=== PATIENT | male | born 1950 | race Caucasian/White ===

== ENCOUNTER 2017-01-22 08:04 | Outpatient (CLI) ==
[2017-01-22 15:20] LABS: BILIRUBIN,URINE Negative (NEGATIVE); KETONES,URINE Negative (NEGATIVE); LEUKOCYTE ESTERASE ,URINE Negative (NEGATIVE); NITRITE,URINE Negative (NEGATIVE); PH,URINE 6.5 (5-9); PROTEIN,URINE Negative (NEGATIVE); URINE, BLOOD Negative (NEGATIVE)
[2017-01-22 15:24] LABS: ADD URINE MICROSCOPIC NO
[2017-01-22 15:31] LABS: BASOPHILS # (AUTO) 0.1 K/uL (0-0.2); BASOPHILS % (AUTO) 0.8 % (0.0-3.0); EOSINOPHILS # (AUTO) 0.2 K/ul (0.0-0.7); EOSINOPHILS % (AUTO) 2.8 % (0.0-7.0); HEMOGLOBIN 14.9 g/dl (14.0-18.0); IMMATURE GRANULOCYTE % (AUTO) 0.4 % (0.0-5.0); LYMPHOCYTES # (AUTO) 1.6 K/uL (0.60-3.4); LYMPHOCYTES % (AUTO) 20.7 (10.0-50.0); MEAN CORPUSCULAR HEMOGLOBIN 30.2 pg (27.0-31.0); MEAN CORPUSCULAR HGB CONC 34.7 (31.8-35.4); MONOCYTES # (AUTO) 0.5 K/uL (0.4-2.0); MONOCYTES % (AUTO) 5.9 (0-10); NEUTROPHILS # (AUTO) 5.5 K/ul (2.0-6.9); NEUTROPHILS % (AUTO) 69.4; PLATELET COUNT 134 10^3/uL (140-440); RED BLOOD COUNT 4.94 10^6/ul (4.70-6.10); WHITE BLOOD COUNT 7.94 K/ul (4.2-10.2)
[2017-01-22 15:47] LABS: ALBUMIN/GLOBULIN RATIO 1.11; ANION GAP 15.2; BILIRUBIN,TOTAL 0.53 mg/dL (0.00-1.20); BUN/CREATININE RATIO 18.4; CALCIUM 9.9 mg/dL (8.2-10.2); CHOL/HDL RATIO 4.3 (4.5-6.4); CREATININE 1.25 mg/dL (0.60-1.10); POTASSIUM 4.2 mmol/L (3.5-5.1); TOTAL PROTEIN 7.6 g/dL (5.8-8.1)
== END 2017-01-22 08:05 | disposition home or self-care (01) ==
LOC: LAB 08:04
PROVIDERS: ATTEND General Practice
DX: I10 Essential (primary) hypertension (principal); R73.03 Prediabetes; I25.10 Atherosclerotic heart disease of native coronary artery without angina pectoris; N40.0 Benign prostatic hyperplasia without lower urinary tract symptoms; M10.9 Gout, unspecified; D89.89 Other specified disorders involving the immune mechanism, not elsewhere classified; G47.33 Obstructive sleep apnea (adult) (pediatric); M06.9 Rheumatoid arthritis, unspecified; Z79.899 Other long term (current) drug therapy; Z68.37 Body mass index [BMI] 37.0-37.9, adult
CPT/HCPCS: 36415; 80053; 80061; 81001; 83036; 85025

== ENCOUNTER 2017-05-22 08:30 | Outpatient (CLI) ==
[2017-05-22 13:49] LABS: BASOPHILS # (AUTO) 0.1 K/uL (0-0.2); BASOPHILS % (AUTO) 0.6 % (0.0-3.0); EOSINOPHILS # (AUTO) 0.3 K/ul (0.0-0.7); EOSINOPHILS % (AUTO) 3.1 % (0.0-7.0); HEMATOCRIT 39.4 % (42.0-52.0); HEMOGLOBIN 13.3 g/dl (14.0-18.0); IMMATURE GRANULOCYTE % (AUTO) 0.2 % (0.0-5.0); LYMPHOCYTES # (AUTO) 1.6 K/uL (0.60-3.4); LYMPHOCYTES % (AUTO) 19.4 (10.0-50.0); MEAN CORPUSCULAR HEMOGLOBIN 29.9 pg (27.0-31.0); MEAN CORPUSCULAR HGB CONC 33.8 (31.8-35.4); MEAN CORPUSCULAR VOLUME 88.5 fl (80.0-94.0); MONOCYTES # (AUTO) 0.5 K/uL (0.4-2.0); MONOCYTES % (AUTO) 6.3 (0-10); NEUTROPHILS # (AUTO) 5.7 K/ul (2.0-6.9); NEUTROPHILS % (AUTO) 70.4; PLATELET COUNT 128 10^3/uL (140-440); RED BLOOD COUNT 4.45 10^6/ul (4.70-6.10); WHITE BLOOD COUNT 8.13 K/ul (4.2-10.2)
[2017-05-22 14:02] LABS: ALBUMIN 3.9 g/dL (3.4-5.0); ALBUMIN/GLOBULIN RATIO 1.22; ANION GAP 17.3; BILIRUBIN,TOTAL 0.41 mg/dL (0.00-1.20); BUN/CREATININE RATIO 15.04; CALCIUM 9.3 mg/dL (8.2-10.2); CHOL/HDL RATIO 3.9 (4.5-6.4); CREATININE 1.13 mg/dL (0.60-1.10); POTASSIUM 4.3 mmol/L (3.5-5.1); TOTAL PROTEIN 7.1 g/dL (5.8-8.1)
[2017-05-22 14:06] LABS: BILIRUBIN,URINE Negative (NEGATIVE); KETONES,URINE Negative (NEGATIVE); LEUKOCYTE ESTERASE ,URINE Negative (NEGATIVE); NITRITE,URINE Negative (NEGATIVE); PH,URINE 5.5 (5-9); PROTEIN,URINE Negative (NEGATIVE); URINE, BLOOD Negative (NEGATIVE)
[2017-05-22 14:15] LABS: ADD URINE MICROSCOPIC NO
== END 2017-05-22 08:31 | disposition home or self-care (01) ==
LOC: LAB 08:30
PROVIDERS: ATTEND General Practice
DX: I10 Essential (primary) hypertension (principal); I25.10 Atherosclerotic heart disease of native coronary artery without angina pectoris; M06.9 Rheumatoid arthritis, unspecified; M10.9 Gout, unspecified; N40.0 Benign prostatic hyperplasia without lower urinary tract symptoms; R73.03 Prediabetes; Z79.899 Other long term (current) drug therapy; Z12.5 Encounter for screening for malignant neoplasm of prostate
CPT/HCPCS: 36415; 80053; 80061; 81001; 85025

== ENCOUNTER 2017-06-12 10:00 | Outpatient (CLI) ==
[2017-06-12 10:18] LABS: OCCULT BLOOD INTERNAL QC 1 INTERNAL QC VALID; OCCULT BLOOD INTERNAL QC 2 INTERNAL QC VALID; OCCULT BLOOD INTERNAL QC 3 INTERNAL QC VALID; OCCULT BLOOD SAMPLE 1 NEGATIVE (NEGATIVE); OCCULT BLOOD SAMPLE 2 NEGATIVE (NEGATIVE); OCCULT BLOOD SAMPLE 3 NEGATIVE (NEGATIVE)
== END 2017-06-12 10:01 | disposition home or self-care (01) ==
LOC: LAB 10:00
PROVIDERS: ATTEND General Practice
DX: D64.9 Anemia, unspecified (principal)
CPT/HCPCS: 82272

== ENCOUNTER 2017-12-25 12:11 | Outpatient (CLI) | END 2017-12-25 12:12 | disposition home or self-care (01) | LOC: LAB 12:11 | PROVIDERS: ATTEND General Practice | DX: I10 Essential (primary) hypertension (principal); I25.10 Atherosclerotic heart disease of native coronary artery without angina pectoris; N40.0 Benign prostatic hyperplasia without lower urinary tract symptoms; G47.33 Obstructive sleep apnea (adult) (pediatric); M10.9 Gout, unspecified; Z79.899 Other long term (current) drug therapy | CPT/HCPCS: 36415; 80053; 80061; 81001; 85025 ==

== ENCOUNTER 2018-04-14 14:00 | Outpatient (CLI) | END 2018-04-14 14:01 | disposition home or self-care (01) | LOC: FCC-LAB 14:00 | PROVIDERS: ATTEND General Practice | DX: M10.9 Gout, unspecified (principal); I10 Essential (primary) hypertension; R73.03 Prediabetes; I25.10 Atherosclerotic heart disease of native coronary artery without angina pectoris; N40.0 Benign prostatic hyperplasia without lower urinary tract symptoms; G47.33 Obstructive sleep apnea (adult) (pediatric); Z12.5 Encounter for screening for malignant neoplasm of prostate; Z79.899 Other long term (current) drug therapy | CPT/HCPCS: 36415; 80053; 80061; 84550 ==

== ENCOUNTER 2018-05-02 10:00 | Outpatient (CLI) | END 2018-05-02 10:01 | disposition home or self-care (01) | LOC: FCC-LAB 10:00 | PROVIDERS: ATTEND General Practice | DX: R73.03 Prediabetes (principal); I25.10 Atherosclerotic heart disease of native coronary artery without angina pectoris; I10 Essential (primary) hypertension; N40.0 Benign prostatic hyperplasia without lower urinary tract symptoms; G47.33 Obstructive sleep apnea (adult) (pediatric); M10.9 Gout, unspecified; Z79.899 Other long term (current) drug therapy; Z12.5 Encounter for screening for malignant neoplasm of prostate | CPT/HCPCS: 36415; 81001; 85025 ==

== ENCOUNTER 2018-05-08 09:11 | Emergency (ER) ==
[2018-05-08 09:24] VITALS: BP 118/67; TEMP 98.1; BMI 33.5
--- NOTE | 2018-05-08 09:43 | ED.PDOC ---
General ED Provider: Dr. KAITY ISABEL Chief Complaint: Hand Pain/Injury Stated Complaint: CC: Pain in Rt Hand and wrist.Denies recent Injury. HPI 36 yr hx gout.Being treated by PCP Dr Barraza. Take Allopurinol. Has difficult bending wrist and 1st MCP joint. Time Seen by Physician: 10:30 Mode of Arrival: Walk-In Information Source: Patient Exam Limitations: No limitations Primary Care Provider: [facility] Referred to ED by: PCP Nursing and Triage Documentation Reviewed and Agree: Yes Does patient meet sepsis criteria?: No System Inflammatory Response Syndrome: Not Applicable Sepsis Protocol: For patient's 13 years and over: Temp is 96.8 and below OR 101 and greater Pulse >90 BPM Resp >20/minute Acutely Altered Mental Status Are patient's symptoms suggestive of a new infection, such as: -Pneumonia -Skin, Soft Tissue -Endocarditis -UTI -Bone, Joint Infection -Implantable Device -Acute Abdominal Infection -Wound Infection -Meningitis -Blood Stream Catheter Infection -Unknown Musculoskeletal Complaint Exam - Hand/Wrist Complaint/Exam Location of Pain: Reports: Right, Hand, Wrist Mechanism of Injury: Reports: No known trauma Symptoms Are: Still present Onset of Pain: Reports: Immediate Initial Severity: Moderate Current Severity: Moderate Location: Reports: Diffuse Character: Reports: Dull, Aching, Throbbing Alleviating: Reports: Rest Aggravating: Reports: Movement Associated Signs and Symptoms: Reports: Swelling, Redness, Weakness, Numbness, Tingling Related History: Reports: Similar episode Dominant Hand: Right Related Surgical History: Reports: None Hand/Wrist Findings: Present: Swelling, Erythema, Warmth Tenderness: Present: Radius Compartment Syndrome Risk Factors: Present: Pain Differential Diagnoses: Gout Review of Systems - Review Of Systems Constitutional: Reports: No symptoms. Denies: Chills, Weakness, Loss of appetite Eyes: Reports: No symptoms Ears, Nose, Mouth, Throat: Reports: No symptoms Respiratory: Reports: No symptoms Cardiac: Reports: No symptoms GI: Reports: No symptoms : Reports: No symptoms Musculoskeletal: Reports: No symptoms, Joint pain, Joint swelling Skin: Reports: No symptoms Neurological: Reports: No symptoms Endocrine: Reports: No symptoms Hematologic/Lymphatic: Reports: No symptoms All Other Systems: Reviewed and Negative Past Medical History - Past Medical History Previously Healthy: Yes Endocrine: Reports: DM 2 Cardiovascular: Reports: Hypertension, Other (Hyperlipidemia ) Respiratory: Reports: None Hematological: Reports: None Gastrointestinal: Reports: None Genitourinary: Reports: None Neuro/Psych: Reports: CVA, Other Musculoskeletal: Reports: Gout, Other (Rheumatoid Arthritis) Cancer: Reports: None - Surgical History General Surgical History: Reports: Unknown - Family History Family History: Reports: Unknown - Social History Smoking Status: Former smoker Hx Substance Use: No Alcohol Screening: None Physical Exam - Physical Exam Appearance: Well-appearing, Ill-appearing, No pain distress, Well-nourished Ill-appearing: Mild Pain Distress: Moderate Eyes: FAISAL, EOMI, Conjunctiva clear ENT: Ears normal, Nose normal, Oropharynx normal Neck: Supple Respiratory: Airway patent, Breath sounds clear, Breath sounds equal, Respirations nonlabored Cardiovascular: RRR, Pulses normal, No rub, No murmur GI/: Soft, Nontender, No masses, Bowel sounds normal, No Organomegaly Musculoskeletal: ROM intact, No calf tenderness, Edema (RT HAND AND WRIST/ ERYTHERMA/PAINFUL TO MOVEMENT/ROM/WEAKENED) Skin: Warm, Dry, Normal color Neurological: Sensation intact, Motor intact, Reflexes intact, Cranial nerves intact, Alert, Oriented Psychiatric: Affect appropriate, Mood appropriate Interpretation - Radiology Interpretation Radiology Interpretation By: Radiologist Radiology Results: No acute changes Exam Interpreted: Other (wrist and hand) Critical Care Note - Critical Care Note Total Time (mins): 0 Course - Course Hematology/Chemistry: 05/08/18 09:48 05/08/18 10:20 Orders, Labs, Meds: Lab Review 05/08/18 05/08/18 05/08/18 09:48 09:52 10:20 WBC 12.73 H RBC 4.55 L Hgb 13.1 L Hct 39.5 L MCV 86.8 MCH 28.8 MCHC 33.2 RDW Coeff of [place] 14.6 Plt Count 163 Immature Gran % (Auto) 0.9 Neut % (Auto) 66.8 Lymph % (Auto) 25.4 [place] % (Auto) 4.9 Eos % (Auto) 1.8 Baso % (Auto) 0.2 Immature Gran # (Auto) 0.1 Neut # (Auto) 8.5 H Lymph # (Auto) 3.2 [place] # (Auto) 0.6 Eos # (Auto) 0.2 Baso # (Auto) 0.0 ESR 14 Sodium 141 Potassium 4.8 Chloride 105 Carbon Dioxide 29 Anion Gap 11.8 BUN 16 Creatinine 0.97 Estimated GFR (MDRD) 77.00 BUN/Creatinine Ratio 16.49 Glucose 103 Uric Acid Calcium 9.4 Magnesium 2.3 H Total Bilirubin 0.5 AST 19 ALT 23 Alkaline Phosphatase 60 Total Protein 6.7 Albumin 3.3 L Globulin 3.4 Albumin/Globulin Ratio 0.97 05/08/18 10:20 WBC RBC Hgb Hct MCV MCH MCHC RDW Coeff of [place]ys Plt Count Immature Gran % (Auto) Neut % (Auto) Lymph % (Auto) [place] % (Auto) Eos % (Auto) Baso % (Auto) Immature Gran # (Auto) Neut # (Auto) Lymph # (Auto) [place] # (Auto) Eos # (Auto) Baso # (Auto) ESR Sodium Potassium Chloride Carbon Dioxide Anion Gap BUN Creatinine Estimated GFR (MDRD) BUN/Creatinine Ratio Glucose Uric Acid 8.6 H Calcium Magnesium Total Bilirubin AST ALT Alkaline Phosphatase Total Protein Albumin Globulin Albumin/Globulin Ratio Orders Category Date Time Status CBC W/ AUTO DIFF Stat LAB 05/08/18 09:48 Completed CMP [COMPREHENSIVE METABOLIC PANEL] Stat LAB 05/08/18 10:20 Completed ESR Stat LAB 05/08/18 09:52 Completed MAGNESIUM Stat LAB 05/08/18 10:20 Completed URIC ACID Stat LAB 05/08/18 10:20 Completed Ketorolac Tromethamine [Toradol] MEDS 05/08/18 10:40 Discontinued 30 mg IM ONCE STA HAND, RIGHT 3 VIEWS Stat RADS 05/08/18 09:50 Completed WRIST, RIGHT 3 VIEWS Stat RADS 05/08/18 09:50 Completed Medications Discontinued Medications Generic Name Dose Route Start Last Admin Trade Name Freq PRN Reason Stop Dose Admin Ketorolac Tromethamine 30 mg 05/08/18 10:40 05/08/18 11:28 Toradol IM 05/08/18 10:41 Not Given ONCE STA Vital Signs: Temp Pulse Resp BP Pulse Ox 05/08/18 09:13 98.1 F 68 20 118/67 97 Departure - Departure Time of Disposition: 11:15 Disposition: HOME SELF-CARE Discharge Problem: Wrist pain, right, Gouty arthritis Instructions: Gout (ED) Condition: Good Pt referred to PMD for follow-up: Yes (pcp) IPMP verified?: No Additional Instructions: RETURN TO PHYSICIANS OFFICE FOR ADDITIONAL EVALUATION Prescriptions: Prednisone 10 mg PO DIRECTED #20 tablet Allergies/Adverse Reactions: Allergies No Known Allergies Allergy (Unverified 05/15/18 09:56) Home Medications: Ambulatory Orders Aspirin 81 mg PO ONCE 05/20/15 Turmeric Root Extract [Turmeric] 500 mg PO DAILY 05/29/17 Multivitamin [Daily Multiple Vitamin] 1 each PO DAILY 04/14/18 Allopurinol 100 mg PO BID 05/08/18 Prednisone 10 mg PO DIRECTED #20 tablet 05/08/18 Metoprolol Tartrate 25 mg PO BID #60 tab-cap 05/15/18 Disposition Discussed With: Patient Additional Information: PATIENT WAS INSTRUCTED TO COME FROM PHYSICIANS OFFICE FOR LAB AND XRAY BUT CAME TO ER THE OFFICE CALLED AND WANTED PT BACK TO OFFICE TREATMENT CANCELLED AND PATIENT DISCHARGED WITH INSTRUCTIONS TO GO BACK TO DR VOGEL'S OFFICE
--- NOTE | 2018-05-08 10:14 | DI ---
EXAM: Three views of the right hand HISTORY: Pain and swelling. COMPARISON: Right wrist x-ray same day FINDINGS: There is no cortical irregularity or displaced fracture. There is scattered narrowing of t he DIP and PIP joints. There is mild narrowing of the first and second MCP joint. There is degenera tive change, narrowing and osteophyte formation of the first CMC joint. There is narrowing of the ra diocarpal joint. No visualized erosions are identified. The soft tissues are unremarkable. IMPRESSION: No acute abnormality or displaced fracture of the right hand. Scattered degenerative disease as described above.
--- NOTE | 2018-05-08 10:16 | DI ---
EXAM: Three views of the right wrist HISTORY: Right wrist pain and swelling. COMPARISON: Same day right hand x-rays FINDINGS: There is no cortical irregularity or displaced fracture. There is no dislocation identifie d. There is narrowing of the first CMC joint with subchondral sclerosis and lucency. There is mild radiocarpal joint space narrowing with degenerative change. Soft tissues are normal. IMPRESSION: 1. No acute abnormality or displaced fracture of the right wrist. 2. Mild degenerative disease of the radiocarpal joint and the first CMC joint.
[2018-05-08] MEDS ORDERED: TORADOL IM STA (10:40)
== END 2018-05-08 11:23 | disposition home or self-care (01) ==
LOC: ED 09:11
DX: M25.531 Pain in right wrist (principal); M79.641 Pain in right hand; M10.9 Gout, unspecified
CPT/HCPCS: 36415; 80053; 83735; 84550; 85025; 85651; 99283

== ENCOUNTER 2018-07-02 10:17 | Outpatient (CLI) | END 2018-07-02 10:18 | disposition home or self-care (01) | LOC: FCC-LAB 10:17 | PROVIDERS: ATTEND General Practice | DX: M10.9 Gout, unspecified (principal) | CPT/HCPCS: 36415; 80069; 84550 ==

== ENCOUNTER 2018-07-08 11:41 | Outpatient (CLI) | END 2018-07-08 11:42 | disposition home or self-care (01) | LOC: FCC-LAB 11:41 | PROVIDERS: ATTEND General Practice | DX: M25.531 Pain in right wrist (principal); M10.9 Gout, unspecified | CPT/HCPCS: 36415; 84550 ==

== ENCOUNTER 2018-08-19 08:28 | Outpatient (CLI) | END 2018-08-19 08:29 | disposition home or self-care (01) | LOC: RHC-LAB 08:28 | PROVIDERS: ATTEND General Practice | DX: M10.9 Gout, unspecified (principal) | CPT/HCPCS: 36415; 80053; 84550 ==

== ENCOUNTER 2018-12-04 08:49 | Outpatient (CLI) | END 2018-12-04 08:50 | disposition home or self-care (01) | LOC: RHC-LAB 08:49 | PROVIDERS: ATTEND General Practice | DX: I10 Essential (primary) hypertension (principal); N40.0 Benign prostatic hyperplasia without lower urinary tract symptoms; D89.89 Other specified disorders involving the immune mechanism, not elsewhere classified; M06.9 Rheumatoid arthritis, unspecified; G47.33 Obstructive sleep apnea (adult) (pediatric); R73.03 Prediabetes; Z79.899 Other long term (current) drug therapy | CPT/HCPCS: 36415; 80053; 80061; 81001; 85025 ==

== ENCOUNTER 2019-01-16 07:48 | Outpatient (CLI) | END 2019-01-16 07:49 | disposition home or self-care (01) | LOC: RHC-LAB 07:48 | PROVIDERS: ATTEND General Practice | DX: E78.5 Hyperlipidemia, unspecified (principal); I10 Essential (primary) hypertension; R73.03 Prediabetes; I25.10 Atherosclerotic heart disease of native coronary artery without angina pectoris; M06.9 Rheumatoid arthritis, unspecified; Z79.899 Other long term (current) drug therapy | CPT/HCPCS: 36415; 80053; 80061; 81001; 85025 ==

== ENCOUNTER 2024-05-07 18:49 | Observation (INO) ==
--- NOTE | 2024-05-07 19:21 | ED.PDOC ---
General ED Provider: Dr. JACKIE JULIO MD Chief Complaint: Bite Stated Complaint: 74-year-old male history of stroke, expressive aphasia, hypertension, hyperlipidemia, presenting to the emergency department with right arm pain and swelling. Patient was scratched by their family cat yesterday. He is unsure if he was just scratched or bitten. As far as he knows he was scratched on both arms however the left arm has no pain or swelling. He denies being bit or scratched elsewhere but is not a very reliable historian. He has been feeling generally weak but no nausea or vomiting. No diarrhea no chest pain or shortness of breath. There is no reported history of diabetes. Time Seen by Provider: 05/07/24 18:52 Information Source: Patient Primary Care Provider: EDDIE ANTUNEZ APRN,[facility] Nursing and Triage Documentation Reviewed and Agree: Yes What is Opioid Naive?: *Opioid Naive implies the patient is not already taking opioids or not chronically receiving opioids on a daily basis. *PRN dosing is not "usually" associated with tolerance. *Patients are at higher risk of over-sedation and aspiration. What is Opioid Tolerant?: *Opioid Tolerance implies less than the expected response to an opioid. *Acquired tolerance is defined by the patient taking 60mg of oral morphine daily (or equianalgesic dose of another opioid) for 1 week or more. *Often associated with chronic pain. *May take more than usual dose to achieve desired pain control. Review of Systems Review Of Systems Constitutional: Reports Chills and Malaise; Denies Fever Eyes: Denies Blurred vision Respiratory: Denies Cough or Shortness of Breath Cardiac: Denies Chest pain or Lightheadedness GI: Denies Abdominal pain : Denies Burning Musculoskeletal: Reports Joint pain and Joint swelling [facility] Medical History (Updated 05/07/24 @ 20:47 by JACKIE JULIO MD) Hypertension From ER visit note 11/26/23 I10 - Essential (primary) hypertension (ICD-10) Tendonitis From ER visit note 11/26/23 M77.9 - Enthesopathy, unspecified (ICD-10) Obstructive sleep apnea From ER visit note 11/26/23 G47.33 - Obstructive sleep apnea (adult) (pediatric) (ICD-10) Family History Mother Heart disease FATHER Heart disease BROTHER Heart disease Renal failure SISTER Chronic cardiac arrhythmia SISTER COPD (chronic obstructive pulmonary disease) Social History Smoking and tobacco status: Former smoker Tobacco: How many years used: 30 Passive smoking exposure: Yes How long ago did patient quit smokin years ago Second hand smoke exposure: Yes Smoking risk assessment performed: No Alcohol intake: former Counseling given: No Substance use type: does not use Counseling provided: none Jenae/jainism: CHEONDOISM Special jenae needs: No Agree to transfusion: Yes Adopted: No Caregiver/support person: Yes ( and daughter) Foster care: No Household members: family Housing: other Marital status: M Lives independently: Yes Number of children: 2 Highest education level completed: high school graduate Financial difficulty paying for basics: not very hard service: No prison: No Current occupational status: retired and disabled Current occupational exposures/hazards: No 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 Pets and animals: No Leisure activites: fishing History of recent travel: No Do you think of yourself as: straight/heterosexual Current gender identity: male Seatbelt use: always Helmet use: No (N/A) Drives intoxicated or rides with intoxicated milk delivery driver: No Water heater temperature set < 120 degrees: Yes Working smoke detector in home: Yes Fire extinguisher in home: Yes Carbon monoxide detector in home: No (all electric) Firearms in home: No Surgical History Status post coronary artery bypass graft Z95.1 - Presence of aortocoronary bypass graft (ICD-10) Physical Exam Physical Exam Appearance: Reports Well-appearing, No pain distress and Well-nourished Ill-appearing: None Pain Distress: None Eyes: Reports FAISAL, EOMI and Conjunctiva clear ENT: Reports Ears normal, Nose normal and Oropharynx normal Neck: Supple Respiratory: Reports Airway patent, Breath sounds clear, Breath sounds equal and Respirations nonlabored Cardiovascular: Reports RRR, Pulses normal, No rub and No murmur GI/: Reports Soft, Nontender, No masses, Bowel sounds normal and No Organomegaly Musculoskeletal: Reports Normal strength, ROM intact, No edema and No calf tenderness Skin: Reports Other (Right forearm has erythema over it going over her wrist. There are multiple scratch parks that are noted. He is neurovascularly intact distally. There are no fusiform digits he is able to range his wrist. There is no inflammation on the volar side of his arm) Neurological: Reports Sensation intact, Motor intact, Reflexes intact, Cranial nerves intact, Alert and Oriented Psychiatric: Reports Affect appropriate and Mood appropriate Course Course 05/07/24 19:25 05/07/24 19:25 Orders, Labs, Meds: Lab Review 05/07/24 19:25 WBC 9.46 RBC 4.06 L Hgb 12.0 L Hct 37.7 L MCV 92.9 MCH 29.6 MCHC 31.8 RDW Coeff of [place] 14.3 Plt Count 138 L Immature Gran % (Auto) 0.3 Neut % (Auto) 79.0 H Lymph % (Auto) 12.2 [place] % (Auto) 7.1 Eos % (Auto) 1.0 Baso % (Auto) 0.4 Neut # (Auto) 7.5 H Lymph # (Auto) 1.2 [place] # (Auto) 0.7 Eos # (Auto) 0.1 Baso # (Auto) 0.0 Immature Gran # (Auto) 0.0 PT 11.6 H INR 1.13 Sodium 140.7 Potassium 4.02 Chloride 106.1 Carbon Dioxide 29.6 Anion Gap 9.02 BUN 12.4 Creatinine 0.88 Estimated GFR (MDRD) 85.00 BUN/Creatinine Ratio 14.09 Glucose 108.5 H Calcium 9.26 Total Bilirubin 0.70 AST 37.3 ALT 30.7 Alkaline Phosphatase 77.1 Total Protein 6.84 Albumin 4.27 Globulin 2.57 Albumin/Globulin Ratio 1.66 Orders Category Date Time Status ADMIT OBSERVATION [PLACE PATIENT OBSERVATION] .TO ADMISSION 05/07/24 20:19 Active MEDSURG (NON-MONITORED BED) ACTIVITY .Early Mobilization for VTE Prevention CARE 05/07/24 20:23 Active INCISION/WOUND CARE Q12HR CARE 05/07/24 20:23 Active INTAKE & OUTPUT Q8HR CARE 05/07/24 20:23 Active VITAL SIGNS Q4HR CARE 05/07/24 20:23 Active REGULAR DIET DIETARY 05/08/24 Breakfast Ordered IV [ED IV/MEDIPORT/POWERPORT] .ONCE EMERGENCY 05/07/24 19:11 Active BLOOD CULTURE (ED ONLY) Stat LAB 05/07/24 19:38 Received CBC W/ AUTO DIFF DAILY@0600 LAB 05/08/24 06:00 Ordered CBC W/ AUTO DIFF DAILY@0600 LAB 05/09/24 06:00 Ordered CBC W/ AUTO DIFF Stat LAB 05/07/24 19:25 Completed CMP [COMPREHENSIVE METABOLIC PANEL] Stat LAB 05/07/24 19:25 Completed COMPREHENSIVE METABOLIC PANEL DAILY@0600 LAB 05/08/24 06:00 Ordered COMPREHENSIVE METABOLIC PANEL DAILY@0600 LAB 05/09/24 06:00 Ordered PT WITH INR Stat LAB 05/07/24 19:25 Completed SARS COV-2 RNA RAPID MAXINE Stat LAB 05/07/24 20:20 Received WOUND CULTURE Stat LAB 05/07/24 20:20 Received 0.9 % Sodium Chloride [Saline Flush] Meds 05/07/24 19:11 Active 1 syr IVF PRN PRN Acetaminophen [Tylenol] Meds 05/07/24 19:11 Discontinued 650 mg PO ONCE ONE Acetaminophen [Tylenol] Meds 05/07/24 20:23 Active 650 mg PO Q4H PRN Ampicillin Sodium/Sulbactam Na [Unasyn] Meds 05/07/24 19:24 Discontinued 3 gm .ROUTE .STK-MED ONE Ampicillin Sodium/Sulbactam Na [Unasyn] 3 gm Meds 05/07/24 19:11 Discontinued 0.9 % Sodium Chloride [Sodium Chloride 100Ml] 100 ml IV ONCE Ampicillin Sodium/Sulbactam Na [Unasyn] 3 gm Meds 05/08/24 01:00 Active 0.9 % Sodium Chloride [Sodium Chloride 100Ml] 100 ml IV Q6HR Diphth,Pertuss(Acell),Tet Vac [Boostrix] Meds 05/07/24 20:19 Discontinued 0.5 ml IM .ONCE ONE FOREARM, RIGHT 2 VIEWS Stat RADS 05/07/24 19:21 Completed HAND, RIGHT 3 VIEWS Stat RADS 05/07/24 19:11 Completed Medications Generic Name Dose Route Start Last Admin Trade Name Freq PRN Reason Stop Dose Admin Acetaminophen 650 mg 05/07/24 20:23 Acetaminophen 325 Mg Tablet PO Q4H PRN Mild Pain Ampicillin Sodium/Sulbactam 100 mls @ 200 mls/hr 05/08/24 01:00 Sodium 3 gm/ Sodium Chloride IV 05/11/24 00:59 Q6HR JACEY Sodium Chloride 1 syr 05/07/24 19:11 0.9% Sodium Chloride 10 Ml Disp.Syrin IVF PRN PRN To flush IV Discontinued Medications Generic Name Dose Route Start Last Admin Trade Name Adam PRN Reason Stop Dose Admin Acetaminophen 650 mg 05/07/24 19:11 05/07/24 19:45 Acetaminophen 325 Mg Tablet PO 05/07/24 19:12 650 mg ONCE ONE Administration Diphtheria/Pertussis/Tetanus Vacc 0.5 ml 05/07/24 20:19 Diphth,Pertuss(Acell),Tet Vac 0.5 Ml Disp.Syrin IM 05/07/24 20:20 .ONCE ONE Ampicillin Sodium/Sulbactam 100 mls @ 200 mls/hr 05/07/24 19:11 05/07/24 19:45 Sodium 3 gm/ Sodium Chloride IV 05/07/24 19:40 200 mls/hr ONCE ONE Administration Vital Signs: Temp Pulse Resp BP Pulse Ox 05/07/24 18:52 97.8 F 80 18 130/69 98 Discharge Plan Discharge Patient Disposition: ADMITTED INPATIENT Discharge Problem: Cellulitis Qualifiers: Site of cellulitis: extremity Site of cellulitis of extremity: upper extremity Laterality: right Qualified Code(s): L03.113 - Cellulitis of right upper limb Prescriptions: No Action aspirin [Aspirin Low-Strength] 81 MG tablet,chewable 81 mg PO ONCE multivitamin [Daily Multiple] 1 EACH tablet 1 ea PO DAILY Eliquis 5 mg tablet 5 mg PO BID Patient Comments: Shellie Coles finasteride 5 mg tablet 5 mg PO QDAY Patient Comments: Prince rosuvastatin 10 mg tablet See Rx Instructions .ROUTE .COMPLEX Qty: 90 0RF Dose Instruction: TAKE ONE TABLET DAILY FOR CHOLESTEROL Rx Instructions: TAKE ONE TABLET DAILY FOR CHOLESTEROL allopurinol 100 mg tablet See Rx Instructions .ROUTE .COMPLEX Qty: 120 0RF Dose Instruction: TAKE TWO TABLETS TWICE DAILY Rx Instructions: TAKE TWO TABLETS TWICE DAILY tamsulosin 0.4 mg capsule See Rx Instructions .ROUTE .COMPLEX Qty: 60 0RF Dose Instruction: TAKE TWO CAPSULES EVERY NIGHT Rx Instructions: TAKE TWO CAPSULES EVERY NIGHT metoprolol tartrate 25 mg tablet 12.5 mg PO BID Patient Comments: bottle dated 09/08/21 shows 25 mg tablets. take 1/2 tablet twice daily Rx Instructions: Followed by Cardiology memantine 28 mg capsule,sprinkle,ER 24hr 28 mg PO QDAY Qty: 30 0RF Rx Instructions: dr montoya neurology ferrous sulfate, dried 144 mg (45 mg iron) tablet extended release 144 mg PO QDAY Qty: 30 0RF Rx Instructions: specialty provider orders Did you review [place] CLINICAL RN MANAGER for ALL controlled substances?: Not Applicable ED Provider: JACKIE JULIO Condition: Stable Physician Progress Note: 74-year-old male history as above presenting after cat scratch, cat bite yesterday now having redness and increased swelling over his arm. Some malaise and chills systemic symptoms otherwise unremarkable. Does not have [place] signs. He does have raised and warm erythema over the dorsum of his forearm. Patient will get labs blood cultures x-ray of the area to ensure no foreign body. Will give Unasyn likely admit for observation.
--- NOTE | 2024-05-07 19:32 | DI ---
EXAM: X-RAY RIGHT HAND THREE-VIEW HISTORY: Cat scratch. COMPARISON: None. FINDINGS: There is no acute fracture or dislocation identified. Mild contour irregularity involving the fifth metacarpal may represent a healed fracture. There are degenerative changes present including osteophyte formation, subchondral cystic change and joint space narrowing. Soft tissue swelling involving the dorsum of the hand and extending into the forearm. IMPRESSION: 1. No acute osseous abnormality. 2. Soft tissue swelling. No radiopaque foreign body. 3. Moderate degenerative changes are present.
--- NOTE | 2024-05-07 19:44 | DI ---
EXAM: RIGHT FOREARM TWO VIEW HISTORY: Animal bite. COMPARISON: Radiographs of the wrist from 05/08/2018. FINDINGS: see impression. IMPRESSION: No discrete fracture line. No dislocation. Degenerative changes to the elbow and wrist. Soft tissue edema. No radiopaque foreign body. If symptoms persist, repeat radiographs in 7-10 days are recommended.
[2024-05-07] MEDS: UNASYN ONE (19:45)
[2024-05-07] MEDS: TYLENOL PO ONE (19:45)
[2024-05-07] MEDS: UNASYN 3 GM in SODIUM CHLORIDE 100ML 100 ML IV ONE (19:45)
[2024-05-07 19:50] LABS: BASOPHILS % (AUTO) 0.4 % (0.0-3.0); EOSINOPHILS # (AUTO) 0.1 K/ul (0.0-0.7); HEMATOCRIT 37.7 % (42.0-52.0); IMMATURE GRANULOCYTE % (AUTO) 0.3 % (0.0-5.0); LYMPHOCYTES # (AUTO) 1.2 K/uL (0.60-3.4); LYMPHOCYTES % (AUTO) 12.2 (10.0-50.0); MEAN CORPUSCULAR HEMOGLOBIN 29.6 pg (27.0-31.0); MEAN CORPUSCULAR HGB CONC 31.8 (31.8-35.4); MEAN CORPUSCULAR VOLUME 92.9 fl (80.0-94.0); MONOCYTES # (AUTO) 0.7 K/uL (0.4-2.0); MONOCYTES % (AUTO) 7.1 (0-10); NEUTROPHILS # (AUTO) 7.5 K/ul (2.0-6.9); PLATELET COUNT 138 10^3/uL (140-440); RDW COEFFICIENT OF VARIATION 14.3 % (11.6-14.8); RED BLOOD COUNT 4.06 10^6/ul (4.70-6.10); WHITE BLOOD COUNT 9.46 K/ul (4.2-10.2)
[2024-05-07 19:55] LABS: ALANINE AMINOTRANSFERASE 30.7 U/L (0-50); ALBUMIN 4.27 g/dL (3.5-5.0); ALKALINE PHOSPHATASE 77.1 U/L (56-119); ASPARTATE AMINO TRANSFERASE 37.3 U/L (17-59); BILIRUBIN,TOTAL 0.7 mg/dL (0.2-1.3); BLOOD UREA NITROGEN 12.4 mg/dL (9-20); CALCIUM 9.26 mg/dL (8.4-10.2); CARBON DIOXIDE 29.6 mmol/L (22-30.0); CHLORIDE 106.1 mmol/L (98-107); CREATININE 0.88 mg/dL (0.60-1.10); GLUCOSE 108.5 mg/dL (74-106); POTASSIUM 4.02 mmol/L (3.5-5.1); PROTHROMBIN TIME 11.6 SEC (9.3-11.0); SODIUM 140.7 mmol/L (134.5-145); TOTAL PROTEIN 6.84 g/dL (6.3-8.2)
[2024-05-07 20:48] LABS: SARS COV-2 RNA RAPID NAAT NEGATIVE (NEGATIVE)
[2024-05-07] MEDS ORDERED: DOXYCYCLINE HYCLATE PO ONE (20:51)
[2024-05-07] MEDS: BOOSTRIX IM ONE (20:57)
[2024-05-07 22:40] VITALS: BMI 27.9
[2024-05-07] MEDS: DESYREL PO ONE (22:49)
[2024-05-08] MEDS: UNASYN 3 GM in SODIUM CHLORIDE 100ML 100 ML IV SCH (00:39)
[2024-05-08] MEDS: UNASYN ONE ×2 (00:40→05:10)
[2024-05-08 05:42] LABS: BASOPHILS % (AUTO) 0.3 % (0.0-3.0); EOSINOPHILS # (AUTO) 0.1 K/ul (0.0-0.7); EOSINOPHILS % (AUTO) 1.3 % (0.0-7.0); HEMATOCRIT 38.9 % (42.0-52.0); HEMOGLOBIN 12.4 g/dl (14.0-18.0); IMMATURE GRANULOCYTE % (AUTO) 0.1 % (0.0-5.0); LYMPHOCYTES # (AUTO) 1.2 K/uL (0.60-3.4); LYMPHOCYTES % (AUTO) 13.8 (10.0-50.0); MEAN CORPUSCULAR HEMOGLOBIN 29.9 pg (27.0-31.0); MEAN CORPUSCULAR HGB CONC 31.9 (31.8-35.4); MEAN CORPUSCULAR VOLUME 93.7 fl (80.0-94.0); MONOCYTES # (AUTO) 0.6 K/uL (0.4-2.0); MONOCYTES % (AUTO) 7.2 (0-10); NEUTROPHILS # (AUTO) 6.7 K/ul (2.0-6.9); NEUTROPHILS % (AUTO) 77.3 % (42.2-75.2); PLATELET COUNT 118 10^3/uL (140-440); RDW COEFFICIENT OF VARIATION 14.2 % (11.6-14.8); RED BLOOD COUNT 4.15 10^6/ul (4.70-6.10); WHITE BLOOD COUNT 8.64 K/ul (4.2-10.2)
[2024-05-08 05:53] LABS: ALBUMIN 4.06 g/dL (3.5-5.0); ALKALINE PHOSPHATASE 76.6 U/L (56-119); BILIRUBIN,TOTAL 0.8 mg/dL (0.2-1.3); BLOOD UREA NITROGEN 9.8 mg/dL (9-20); CALCIUM 9.07 mg/dL (8.4-10.2); CARBON DIOXIDE 28.7 mmol/L (22-30.0); CREATININE 0.77 mg/dL (0.60-1.10); GLUCOSE 104.9 mg/dL (74-106); POTASSIUM 3.87 mmol/L (3.5-5.1); SODIUM 142.8 mmol/L (134.5-145); TOTAL PROTEIN 6.74 g/dL (6.3-8.2)
--- NOTE | 2024-05-08 09:03 | PCM ---
Date of Service Date Seen by Provider: 05/08/24 Time Seen by Provider: 08:40 Admit Day/Time Admission Date: 05/07/24 Reason for Admission Chief Complaint: CELLULITIS Hospital Provider Hospital [facility] Primary Care Physician Primary Care Physician: EDDIE ANTUNEZ APRN,[facility] History of Present Illness History of Present Illness: 74 yo male presented to the ER with complaints of cat bite to R hand/arm. Patient has pmh of end-stage dementia and unable to provide HPI. reports that cat bite occurred on Saturday05/06/24 and affected extremity became swollen and red following. Presented to ER yesterday. Denies any fever that she is aware of, no other symptoms. Tetanus was not up to date and was updated in ER. Cat is a family pet however vaccines not up to date. Reports no signs of rabies. ER work-up unremarkable. Started on unasyn and admited to med/surg observation for cellulitis. Case Discussed With Case Discussed With: Patient's case was discussed with the ER Physicians, Dr. Ahmadi. [facility] Medical History Alzheimer's dementia G30.9 - Alzheimer's disease, unspecified (ICD-10) F02.80 - Dementia in other diseases classified elsewhere, unspecified severity, without behavioral disturbance, psychotic disturbance, mood disturbance, and anxiety (ICD-10) Hypertension From ER visit note 11/26/23 I10 - Essential (primary) hypertension (ICD-10) Tendonitis From ER visit note 11/26/23 M77.9 - Enthesopathy, unspecified (ICD-10) Obstructive sleep apnea From ER visit note 11/26/23 G47.33 - Obstructive sleep apnea (adult) (pediatric) (ICD-10) Surgical History Status post coronary artery bypass graft Z95.1 - Presence of aortocoronary bypass graft (ICD-10) Family History Mother , Heart attack Heart disease FATHER , Heart attack Heart disease BROTHER , kidney failure Heart disease Renal failure SISTER , unknown Chronic cardiac arrhythmia SISTER COPD (chronic obstructive pulmonary disease) Social History Smoking and tobacco status: Former smoker Tobacco: How many years used: 30 Passive smoking exposure: Yes How long ago did patient quit smokin years ago Second hand smoke exposure: Yes Smoking risk assessment performed: No Alcohol intake: former Counseling given: No Substance use type: does not use Counseling provided: none Jenae/temple: QUAKER Special jenae needs: No Agree to transfusion: Yes Adopted: No Caregiver/support person: Yes ( and daughter) Foster care: No Household members: family Housing: other Marital status: M Lives independently: Yes Number of children: 2 Highest education level completed: high school graduate Financial difficulty paying for basics: not very hard service: No shelter: No Current occupational status: retired and disabled Current occupational exposures/hazards: No 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 Pets and animals: No Leisure activites: fishing History of recent travel: No Do you think of yourself as: straight/heterosexual Current gender identity: male Seatbelt use: always Helmet use: No (N/A) Drives intoxicated or rides with intoxicated driver operator: No Water heater temperature set < 120 degrees: Yes Working smoke detector in home: Yes Fire extinguisher in home: Yes Carbon monoxide detector in home: No (all electric) Firearms in home: No Allergies Allergies Allergy/AdvReac Type Severity Reaction Status Date / Time No Known Allergies Allergy Verified 05/07/24 19:02 Current Medications Home Medications metoprolol tartrate 25 mg tablet 12.5 mg PO BID 10/11/21 [History Confirmed 05/08/24 Last Taken Unknown] apixaban 5 mg tablet (Eliquis) 5 mg PO BID 12/15/21 [History Confirmed 05/08/24 Last Taken Unknown] finasteride 5 mg tablet 5 mg PO QDAY 12/15/21 [History Confirmed 05/08/24 Last Taken Unknown] memantine 28 mg capsule sprinkle,extended release 24hr 28 mg PO QDAY #30 ea 11/27/22 [Rx Confirmed 05/08/24 Last Taken Unknown] rosuvastatin 10 mg tablet See Rx Instructions .Route .COMPLEX #90 tabs 03/03/24 [Rx Confirmed 05/08/24 Last Taken Unknown] allopurinol 100 mg tablet See Rx Instructions .Route .COMPLEX #120 tabs 03/19/24 [Rx Confirmed 05/08/24 Last Taken Unknown] tamsulosin 0.4 mg capsule See Rx Instructions .Route .COMPLEX #60 caps 03/24/24 [Rx Confirmed 05/08/24 Last Taken Unknown] trazodone 50 mg tablet 50 mg PO BEDTIME 05/07/24 [History Confirmed 05/08/24 Last Taken Unknown] Home Acetaminophen (Acetaminophen 325 Mg Tablet) 650 mg PO Q4H PRN PRN Reason: Mild Pain Allopurinol (Allopurinol 100 Mg Tablet) 0 mg PO .COMPLEX JACEY Apixaban (Apixaban 5 Mg Tab) 5 mg PO BID JACEY Finasteride (Finasteride 5 Mg Tablet) 5 mg PO DAILY JACEY Ampicillin Sodium/Sulbactam (Sodium 3 gm/ Sodium Chloride) 100 mls @ 200 mls/hr IV Q6HR ON LICENSE OF [facility] Stop: 05/11/24 00:59 Last Admin: 05/08/24 05:09 Dose: 200 mls/hr Metoprolol Tartrate (Metoprolol Tartrate 25 Mg Tablet) 12.5 mg PO BID JACEY Non-Formulary Medication (Memantine) 28 mg PO QDAY JACEY Rosuvastatin Calcium (Rosuvastatin Calcium 10 Mg Tablet) 0 mg PO .COMPLEX JACEY Sodium Chloride (0.9% Sodium Chloride 10 Ml Disp.Syrin) 1 syr IVF Q8H ON LICENSE OF [facility] Last Admin: 05/08/24 05:09 Dose: 1 syr Tamsulosin HCl (Tamsulosin Hcl 0.4 Mg Cap.Er.24h) 0 mg PO .COMPLEX JACEY Trazodone HCl (Trazodone Hcl 50 Mg Tablet) 50 mg PO BEDTIME ON LICENSE OF [facility] Discontinued Medications Acetaminophen (Acetaminophen 325 Mg Tablet) 650 mg PO ONCE ONE Stop: 05/07/24 19:12 Last Admin: 05/07/24 19:45 Dose: 650 mg Diphtheria/Pertussis/Tetanus Vacc (Diphth,Pertuss(Acell),Tet Vac 0.5 Ml Disp.Syrin) 0.5 ml IM .ONCE ONE Stop: 05/07/24 20:20 Last Admin: 05/07/24 20:57 Dose: 0.5 ml Ampicillin Sodium/Sulbactam (Sodium 3 gm/ Sodium Chloride) 100 mls @ 200 mls/hr IV ONCE ONE Stop: 05/07/24 19:40 Last Admin: 05/07/24 19:45 Dose: 200 mls/hr Sodium Chloride (0.9% Sodium Chloride 10 Ml Disp.Syrin) 1 syr IVF PRN PRN PRN Reason: To flush IV Trazodone HCl (Trazodone Hcl 50 Mg Tablet) 50 mg PO ONCE ONE Stop: 05/07/24 22:43 Last Admin: 05/07/24 22:49 Dose: 50 mg Opioid Naive vs. Tolerant Does Patient Take Opioids?: No Is Patient Opioid Naive?: Yes What is Opioid Naive?: *Opioid Naive implies the patient is not already taking opioids or not chronically receiving opioids on a daily basis. *PRN dosing is not "usually" associated with tolerance. *Patients are at higher risk of over-sedation and aspiration. Is Patient Opioid Tolerant?: No What is Opioid Tolerant?: *Opioid Tolerance implies less than the expected response to an opioid. *Acquired tolerance is defined by the patient taking 60mg of oral morphine daily (or equianalgesic dose of another opioid) for 1 week or more. *Often associated with chronic pain. *May take more than usual dose to achieve desired pain control. Physical examination Most Recent Vital Signs: Most Recent Vital Signs Temperature 97.5 F L 05/08/24 05:05 Temperature Source Temporal Artery Scan 05/08/24 05:05 Temperature Source Oral 05/07/24 18:52 Pulse Rate 61 05/08/24 05:05 Respiratory Rate 18 05/08/24 05:05 Blood Pressure 133/68 05/08/24 05:05 Blood Pressure Mean 89 05/08/24 05:05 Blood Pressure Right Arm 128/65 05/07/24 21:37 Blood Pressure Location Left Arm 05/08/24 05:05 Blood Pressure Position Supine 05/08/24 05:05 O2 Sat by Pulse Oximetry 96 05/08/24 05:05 Oxygen Delivery Method Room Air 05/08/24 09:00 Height 6 ft 5 in 05/07/24 21:37 Weight 235 lb 9 oz 05/07/24 21:37 Appearance: Positive No Apparent Distress Skin: Positive Warm, Good Turgor and Other (scattered healing abrasions to R hand/arm, mild erythema surrounding sites, edema to hand and fingers) HEENT: Positive Normocephalic and Atraumatic Neck: Positive Supple and Midline Trachea Chest/Lungs: Positive Symmetrical With Equal Breath Sounds, Clear to Auscultation Bilaterally and Good Air Movement all 4 Lung Posey Heart: Positive RRR and Pulses Normal GI/: Positive Soft, Nontender, Bowel Sounds Normal and No Distention Musculoskeletal: Positive Not Examined Extremities: Positive Intact Peripheral Pulses, Stable Joints Without Laxity and Good ROM in All Joints Neurological: Positive Sensation Intact, Motor intact, Alert and Disorinted Labs This Visit Labs This Visit: Labs This Visit 05/07/24 05/07/24 05/08/24 19:25 20:20 05:03 WBC 9.46 8.64 RBC 4.06 L 4.15 L Hgb 12.0 L 12.4 L Hct 37.7 L 38.9 L MCV 92.9 93.7 MCH 29.6 29.9 MCHC 31.8 31.9 RDW Coeff of Belk[place] 14.3 14.2 Plt Count 138 L 118 L Immature Gran % (Auto) 0.3 0.1 Neut % (Auto) 79.0 H 77.3 H Lymph % (Auto) 12.2 13.8 [place] % (Auto) 7.1 7.2 Eos % (Auto) 1.0 1.3 Baso % (Auto) 0.4 0.3 Neut # (Auto) 7.5 H 6.7 Lymph # (Auto) 1.2 1.2 [place] # (Auto) 0.7 0.6 Eos # (Auto) 0.1 0.1 Baso # (Auto) 0.0 0.0 Immature Gran # (Auto) 0.0 0.0 PT 11.6 H INR 1.13 Sodium 140.7 142.8 Potassium 4.02 3.87 Chloride 106.1 108.0 H Carbon Dioxide 29.6 28.7 Anion Gap 9.02 9.97 BUN 12.4 9.8 Creatinine 0.88 0.77 Estimated GFR (MDRD) 85.00 99.00 BUN/Creatinine Ratio 14.09 12.72 Glucose 108.5 H 104.9 Calcium 9.26 9.07 Total Bilirubin 0.70 0.80 AST 37.3 33.0 ALT 30.7 28.0 Alkaline Phosphatase 77.1 76.6 Total Protein 6.84 6.74 Albumin 4.27 4.06 Globulin 2.57 2.68 Albumin/Globulin Ratio 1.66 1.51 SARS CoV-2 RNA Rapid MAXINE Negative Microbiology This Visit 05/07/24 20:20 Arm - Right Wound Culture - Preliminary Imaging Imaging: EXAM: X-RAY RIGHT HAND THREE-VIEW IMPRESSION: 1. No acute osseous abnormality. 2. Soft tissue swelling. No radiopaque foreign body. 3. Moderate degenerative changes are present. EXAM: RIGHT FOREARM TWO VIEW IMPRESSION: No discrete fracture line. No dislocation. Degenerative changes to the elbow and wrist. Soft tissue edema. No radiopaque foreign body. If symptoms persist, repeat radiographs in 7-10 days are recommended. Review Statement Review Statement: I have independently reviewed and interpreted the labs/EKGs/imaging that were ordered by the ER provider. I have reviewed all outside records that are available currently in our EMR including imaging/notes/labs from previous vi sits. Plan Plan: 1. Acute Cellulitis to R extremity s/p cat bite/scratch - blood and wound cultures pending, unasyn 3G Q6H IVPB 2. Afib - not in RVR, chronic, continue home medications 3. BPH - chronic, continue home medications 4. Dementia - chronic, continue home medications DVT Prophylaxis: Eliquis Time Spent: Greater than 80 minutes spent with patient, 50% of the time spent with this patient was devoted to counseling and coordination of care. [facility]annin minutes spent discussing advance care planning. Disposition: Admit to: Med/surg Observation Full Code Discussed Plan of Care with Dr. Zeke Toribio. Medications Medication Orders: Medications Ordered Category Date Time Status 0.9 % Sodium Chloride [Saline Flush] Meds 05/07/24 21:15 Active 1 syr IVF Q8H Acetaminophen [Tylenol] Meds 05/07/24 20:23 Active 650 mg PO Q4H PRN Allopurinol [Zyloprim] Meds 05/08/24 09:30 Ordered See Dose Instructions PO .COMPLEX Ampicillin Sodium/Sulbactam Na [Unasyn] 3 gm Meds 05/08/24 01:00 Active 0.9 % Sodium Chloride [Sodium Chloride 100Ml] 100 ml IV Q6HR Apixaban [Eliquis] Meds 05/08/24 09:05 Ordered 5 mg PO BID Finasteride [Proscar] Meds 05/08/24 09:30 Ordered 5 mg PO QDAY Metoprolol Tartrate [Lopressor] Meds 05/08/24 09:05 Ordered 12.5 mg PO BID Rosuvastatin Calcium [Crestor] Meds 05/08/24 09:30 Ordered See Dose Instructions PO .COMPLEX Tamsulosin HCl [Flomax] Meds 05/08/24 09:30 Ordered See Dose Instructions PO .COMPLEX Trazodone HCl [Desyrel] Meds 05/08/24 21:00 Ordered 50 mg PO BEDTIME memantine Meds 05/08/24 09:15 Ordered 28 mg PO QDAY
[2024-05-08] MEDS: LOPRESSOR PO SCH (09:27)
[2024-05-08] MEDS: ZYLOPRIM PO SCH (09:27)
[2024-05-08] MEDS: CRESTOR PO SCH (09:27)
[2024-05-08] MEDS: ELIQUIS PO SCH (09:27)
[2024-05-08] MEDS: NAMENDA PO SCH (09:27)
[2024-05-08] MEDS ORDERED: NAMENDA PO SCH (09:30)
[2024-05-08] MEDS: TYLENOL PO PRN (09:55)
[2024-05-08] MEDS: XANAX PO ONE (11:01)
[2024-05-08] MEDS: ATIVAN IVP ONE (15:09)
[2024-05-08] MEDS: DESYREL PO SCH (20:21)
[2024-05-08] MEDS: FLOMAX PO SCH (20:22)
[2024-05-08] MEDS: ATIVAN PO PRN (20:22)
[2024-05-09 05:05] LABS: BASOPHILS % (AUTO) 0.4 % (0.0-3.0); EOSINOPHILS # (AUTO) 0.2 K/ul (0.0-0.7); EOSINOPHILS % (AUTO) 1.6 % (0.0-7.0); HEMOGLOBIN 12.7 g/dl (14.0-18.0); IMMATURE GRANULOCYTE % (AUTO) 0.4 % (0.0-5.0); LYMPHOCYTES # (AUTO) 1.3 K/uL (0.60-3.4); LYMPHOCYTES % (AUTO) 12.1 (10.0-50.0); MEAN CORPUSCULAR HEMOGLOBIN 29.4 pg (27.0-31.0); MEAN CORPUSCULAR HGB CONC 31.8 (31.8-35.4); MEAN CORPUSCULAR VOLUME 92.6 fl (80.0-94.0); MONOCYTES # (AUTO) 0.7 K/uL (0.4-2.0); MONOCYTES % (AUTO) 6.7 (0-10); NEUTROPHILS # (AUTO) 8.3 K/ul (2.0-6.9); NEUTROPHILS % (AUTO) 78.8 % (42.2-75.2); PLATELET COUNT 124 10^3/uL (140-440); RDW COEFFICIENT OF VARIATION 14.2 % (11.6-14.8); RED BLOOD COUNT 4.32 10^6/ul (4.70-6.10)
[2024-05-09 05:14] LABS: ALANINE AMINOTRANSFERASE 24.3 U/L (0-50); ALBUMIN 3.91 g/dL (3.5-5.0); ALKALINE PHOSPHATASE 75.9 U/L (56-119); ASPARTATE AMINO TRANSFERASE 33.6 U/L (17-59); BILIRUBIN,TOTAL 0.64 mg/dL (0.2-1.3); BLOOD UREA NITROGEN 12.1 mg/dL (9-20); CALCIUM 8.86 mg/dL (8.4-10.2); CARBON DIOXIDE 27.7 mmol/L (22-30.0); CHLORIDE 107.4 mmol/L (98-107); CREATININE 0.78 mg/dL (0.60-1.10); GLUCOSE 107.7 mg/dL (74-106); POTASSIUM 3.92 mmol/L (3.5-5.1); SODIUM 140.3 mmol/L (134.5-145); TOTAL PROTEIN 6.54 g/dL (6.3-8.2)
[2024-05-09] MEDS: PROSCAR PO SCH (08:36)
--- NOTE | 2024-05-09 10:07 | CT ---
EXAM: CT OF THE RIGHT HAND WITH CONTRAST TECHNIQUE: CT of the right hand was performed with IV contrast. Multiplanar reformats were made. HISTORY: Soft tissue swelling. Cat bite COMPARISON: None. FINDINGS: Soft tissue swelling is present over the forearm which is more pronounced near the wrist with some sk in thickening. More pronounced soft tissue swelling over the dorsal aspect of the hand as well as so ft tissue swelling of the index, middle and ring fingers. Subcortical degenerative cyst like changes are present within the wrist. Osteoarthritis is present within the hand and wrist. No significant stenosis or evidence of vascular occlusion. No drainable abscess evident. There is a linear calcifi cation/enthesophyte of the extensor carpi ulnaris. IMPRESSION: 1. Multilevel focal osteoarthritis 2. Diffuse soft tissue swelling as noted which may reflect cellulitis. No drainable abscess evident. 3. Diffuse calcification of the distal extensor carpi ulnaris. All CT scans are performed using dose optimization techniques as appropriate to the performed exam an d include at least one of the following: Automated exposure control, adjustment of the mA and/or kV according t o size, and the use of iterative reconstruction technique.
--- NOTE | 2024-05-09 10:20 | PCM.PROG ---
Date/Time Seen Date Seen by Provider: 05/09/24 Time Seen by Provider: 09:00 Provider [facility] Chief Complaint Chief Complaint: CELLULITIS Subjective Subjective: Arm more red and swollen this am. Patient has complained of pain to nursing staff. Objective Appearance: Positive No Apparent Distress Chest/Lungs: Positive Symmetrical With Equal Breath Sounds, Clear to Auscultation Bilaterally and Good Air Movement all 4 Lung Posey Heart: Positive RRR and Pulses Normal GI/: Positive Soft, Nontender, Bowel Sounds Normal and No Distention Musculoskeletal: Positive Not Examined Neurological: Positive Sensation Intact, Motor intact, Alert and Disorinted Additional Findings: Diffuse swelling and worsened erythema to R hand, fingers, and wrist. Scattered healing abrasions noted. No open areas. Vital Signs Vital Signs: Vital Signs: Last 24 Hours 05/08/24 11:00 05/08/24 12:00 05/08/24 13:00 Temperature Temperature Source Pulse Rate Pulse Rate [Apical] Respiratory Rate Blood Pressure Blood Pressure Mean Blood Pressure Location Blood Pressure Position O2 Sat by Pulse Oximetry Oxygen Delivery Method Room Air Room Air Room Air 05/08/24 14:00 05/08/24 14:00 05/08/24 15:00 Temperature 97.5 F L Temperature Source Temporal Artery Scan Pulse Rate 70 Pulse Rate [Apical] Respiratory Rate 16 Blood Pressure 113/52 L Blood Pressure Mean 72 Blood Pressure Location Left Arm Blood Pressure Position Sitting O2 Sat by Pulse Oximetry 98 Oxygen Delivery Method Room Air Room Air Room Air 05/08/24 16:00 05/08/24 16:57 05/08/24 18:00 Temperature Temperature Source Pulse Rate Pulse Rate [Apical] Respiratory Rate Blood Pressure Blood Pressure Mean Blood Pressure Location Blood Pressure Position O2 Sat by Pulse Oximetry Oxygen Delivery Method Room Air Room Air Room Air 05/08/24 18:00 05/08/24 19:00 05/08/24 20:00 Temperature 96.8 F L Temperature Source Temporal Artery Scan Pulse Rate 58 L Pulse Rate [Apical] Respiratory Rate 14 Blood Pressure 127/65 Blood Pressure Mean 85 Blood Pressure Location Left Arm Blood Pressure Position Sitting O2 Sat by Pulse Oximetry 99 Oxygen Delivery Method Room Air Room Air Room Air 05/08/24 20:00 05/08/24 21:00 05/08/24 22:00 Temperature 97.9 F Temperature Source Temporal Artery Scan Pulse Rate 57 L Pulse Rate [Apical] Respiratory Rate 18 Blood Pressure 135/61 Blood Pressure Mean 85 Blood Pressure Location Right Arm Blood Pressure Position Supine O2 Sat by Pulse Oximetry 96 Oxygen Delivery Method Room Air Room Air Room Air 05/08/24 22:00 05/08/24 23:00 05/09/24 00:00 Temperature Temperature Source Pulse Rate Pulse Rate [Apical] Respiratory Rate Blood Pressure Blood Pressure Mean Blood Pressure Location Blood Pressure Position O2 Sat by Pulse Oximetry Oxygen Delivery Method Room Air Room Air Room Air 05/09/24 01:00 05/09/24 02:00 05/09/24 03:00 Temperature Temperature Source Pulse Rate Pulse Rate [Apical] Respiratory Rate Blood Pressure Blood Pressure Mean Blood Pressure Location Blood Pressure Position O2 Sat by Pulse Oximetry Oxygen Delivery Method Room Air Room Air Room Air 05/09/24 04:00 05/09/24 05:00 05/09/24 05:34 Temperature 98 F Temperature Source Temporal Artery Scan Pulse Rate 61 Pulse Rate [Apical] Respiratory Rate 20 Blood Pressure 133/63 Blood Pressure Mean 86 Blood Pressure Location Right Arm Blood Pressure Position Supine O2 Sat by Pulse Oximetry 98 Oxygen Delivery Method Room Air Room Air Room Air 05/09/24 06:00 05/09/24 07:00 05/09/24 07:52 Temperature Temperature Source Pulse Rate Pulse Rate [Apical] 64 Respiratory Rate 18 Blood Pressure Blood Pressure Mean Blood Pressure Location Blood Pressure Position O2 Sat by Pulse Oximetry Oxygen Delivery Method Room Air Room Air Room Air 05/09/24 08:00 05/09/24 09:00 05/09/24 10:00 Temperature Temperature Source Pulse Rate Pulse Rate [Apical] Respiratory Rate Blood Pressure Blood Pressure Mean Blood Pressure Location Blood Pressure Position O2 Sat by Pulse Oximetry Oxygen Delivery Method Room Air Room Air Room Air Lab Results Lab Results: Lab Results: Last 24 Hours 05/09/24 04:50 WBC 10.50 H RBC 4.32 L Hgb 12.7 L Hct 40.0 L MCV 92.6 MCH 29.4 MCHC 31.8 RDW Coeff of Belkys 14.2 Plt Count 124 L Immature Gran % (Auto) 0.4 Neut % (Auto) 78.8 H Lymph % (Auto) 12.1 [place] % (Auto) 6.7 Eos % (Auto) 1.6 Baso % (Auto) 0.4 Neut # (Auto) 8.3 H Lymph # (Auto) 1.3 [place] # (Auto) 0.7 Eos # (Auto) 0.2 Baso # (Auto) 0.0 Immature Gran # (Auto) 0.0 Sodium 140.3 Potassium 3.92 Chloride 107.4 H Carbon Dioxide 27.7 Anion Gap 9.12 BUN 12.1 Creatinine 0.78 Estimated GFR (MDRD) 98.00 BUN/Creatinine Ratio 15.51 Glucose 107.7 H Calcium 8.86 Total Bilirubin 0.64 AST 33.6 ALT 24.3 Alkaline Phosphatase 75.9 Total Protein 6.54 Albumin 3.91 Globulin 2.63 Albumin/Globulin Ratio 1.48 Additional Comments Additional Comments: I have independently reviewed and interpreted the labs/EKGs/imaging ordered during this hospital stay. I have reviewed outside records that are available in our EMR that pertain to medical stay including imaging/notes/labs from previous visits. Active Medications Active Medications: Medications Generic Name Dose Route Start Last Admin Trade Name Freq PRN Reason Stop Dose Admin Acetaminophen 650 mg 05/07/24 20:23 05/08/24 09:55 Acetaminophen 325 Mg Tablet PO 650 mg Q4H PRN Administration Mild Pain Allopurinol 200 mg 05/08/24 09:30 05/09/24 08:35 Allopurinol 100 Mg Tablet PO 200 mg BID JACEY Administration Apixaban 5 mg 05/08/24 09:05 05/09/24 08:36 Apixaban 5 Mg Tab PO 5 mg BID JACEY Administration Finasteride 5 mg 05/09/24 09:00 05/09/24 08:36 Finasteride 5 Mg Tablet PO 5 mg DAILY JACEY Administration Ampicillin Sodium/Sulbactam 100 mls @ 200 mls/hr 05/08/24 01:00 05/09/24 05:08 Sodium 3 gm/ Sodium Chloride IV 05/11/24 00:59 200 mls/hr Q6HR JACEY Administration VANCOMYCIN/WATER FOR INJ (PEG) 1.5 gm in 300 mls @ 200 mls/hr 05/09/24 10:00 Vancomycin 1.5 Gram/300 Ml Premix IV 05/12/24 09:59 Q12HR JACEY Ketorolac Tromethamine 15 mg 05/09/24 09:07 Ketorolac Tromethamine 15 Mg/Ml Vial IVP 05/13/24 09:08 Q6HR PRN Pain Lorazepam 1 mg 05/08/24 15:01 05/08/24 20:22 Lorazepam 1 Mg Tablet PO 1 mg TID PRN Administration Anxiety Memantine 10 mg 05/08/24 09:30 05/09/24 08:36 Memantine Hcl 10 Mg Tablet PO 10 mg BID JACEY Administration Metoprolol Tartrate 12.5 mg 05/08/24 09:05 05/09/24 08:35 Metoprolol Tartrate 25 Mg Tablet PO 12.5 mg BID JACEY Administration Rosuvastatin Calcium 10 mg 05/08/24 09:30 05/09/24 08:36 Rosuvastatin Calcium 10 Mg Tablet PO 10 mg DAILY JACEY Administration Sodium Chloride 1 syr 05/07/24 21:15 05/09/24 04:52 0.9% Sodium Chloride 10 Ml Disp.Syrin IVF 1 syr Q8H JACEY Administration Tamsulosin HCl 0.8 mg 05/08/24 21:00 05/08/24 20:22 Tamsulosin Hcl 0.4 Mg Cap.Er.24h PO 0.8 mg BEDTIME JACEY Administration Trazodone HCl 50 mg 05/08/24 21:00 05/08/24 20:21 Trazodone Hcl 50 Mg Tablet PO 50 mg BEDTIME JACEY Administration Plan Plan: 1. Acute Cellulitis to R extremity s/p cat bite/scratch - Worsening, CT w completed and negative for abscess, blood and wound cultures negative x 24 hours, unasyn 3G Q6H IVPB, added vancomycin to regimen 2. Afib - not in RVR, chronic, continue home medications 3. BPH - chronic, continue home medications 4. Dementia - chronic, continue home medications DVT Prophylaxis: Eliquis Review Statement Review Statement: I have personally discussed and reviewed the patient's visit/currently labs/imaging/decision making with Dr. Toribio, my supervising attending. Greater that 50 minutes spent with patient, 50% of the time spent with this patient was devoted to counseling and coordination of care. Additional Comments Additional Comments: EXAM: CT OF THE RIGHT HAND WITH CONTRAST TECHNIQUE: CT of the right hand was performed with IV contrast. Multiplanar reformats were made. HISTORY: Soft tissue swelling. Cat bite COMPARISON: None. FINDINGS: Soft tissue swelling is present over the forearm which is more pronounced near the wrist with some skin thickening. More pronounced soft tissue swelling over the dorsal aspect of the hand as well as soft tissue swelling of the index, middle and ring fingers. Subcortical degenerative cyst like changes are present within the wrist. Osteoarthritis is present within the hand and wrist. No significant stenosis or evidence of vascular occlusion. No drainable abscess evident. There is a linear calcification/enthesophyte of the extensor carpi ulnaris. IMPRESSION: 1. Multilevel focal osteoarthritis 2. Diffuse soft tissue swelling as noted which may reflect cellulitis. No drainable abscess evident. 3. Diffuse calcification of the distal extensor carpi ulnaris.
[2024-05-09] MEDS: VANCOMYCIN 1.5 GRAM/300 ML PREMIX 1.5 GM/300 ML BAG IV SCH (10:26)
[2024-05-09] MEDS: TORADOL IVP PRN (10:29)
[2024-05-10 05:09] VITALS: BP 141/72; RESP 17; TEMP 97.9
[2024-05-10 05:49] LABS: BASOPHILS % (AUTO) 0.3 % (0.0-3.0); EOSINOPHILS # (AUTO) 0.2 K/ul (0.0-0.7); EOSINOPHILS % (AUTO) 2.2 % (0.0-7.0); HEMATOCRIT 39.1 % (42.0-52.0); HEMOGLOBIN 12.4 g/dl (14.0-18.0); IMMATURE GRANULOCYTE % (AUTO) 0.2 % (0.0-5.0); LYMPHOCYTES # (AUTO) 1.1 K/uL (0.60-3.4); LYMPHOCYTES % (AUTO) 12.4 (10.0-50.0); MEAN CORPUSCULAR HEMOGLOBIN 29.6 pg (27.0-31.0); MEAN CORPUSCULAR HGB CONC 31.7 (31.8-35.4); MEAN CORPUSCULAR VOLUME 93.3 fl (80.0-94.0); MONOCYTES # (AUTO) 0.5 K/uL (0.4-2.0); MONOCYTES % (AUTO) 5.9 (0-10); NEUTROPHILS # (AUTO) 6.8 K/ul (2.0-6.9); PLATELET COUNT 126 10^3/uL (140-440); RDW COEFFICIENT OF VARIATION 13.9 % (11.6-14.8); RED BLOOD COUNT 4.19 10^6/ul (4.70-6.10); WHITE BLOOD COUNT 8.62 K/ul (4.2-10.2)
[2024-05-10 06:03] LABS: ALANINE AMINOTRANSFERASE 22.8 U/L (0-50); ALBUMIN 3.75 g/dL (3.5-5.0); ALKALINE PHOSPHATASE 77.4 U/L (56-119); ASPARTATE AMINO TRANSFERASE 28.8 U/L (17-59); BILIRUBIN,TOTAL 0.78 mg/dL (0.2-1.3); CALCIUM 8.79 mg/dL (8.4-10.2); CHLORIDE 108.9 mmol/L (98-107); CREATININE 0.74 mg/dL (0.60-1.10); GLUCOSE 91.1 mg/dL (74-106); POTASSIUM 3.85 mmol/L (3.5-5.1); SODIUM 139.5 mmol/L (134.5-145); TOTAL PROTEIN 6.38 g/dL (6.3-8.2)
[2024-05-10 08:01] VITALS: PULSE 68
--- NOTE | 2024-05-10 08:53 | DCSUM ---
Admission Date Admission Date: 05/08/24 Discharge Date Discharge Date: 05/10/24 Admission Diagnosis Admission Diagnosis: 1. Acute Cellulitis to R extremity s/p cat bite/scratch 2. Afib 3. BPH 4. Dementia Discharge Diagnosis Discharge Diagnosis: 1. Acute Cellulitis to R extremity s/p cat bite/scratch - Improving 2. Afib - chronic, stable 3. BPH - chronic, stable 4. Dementia - chronic, stable Hospital Provider Hospital Provider: DANE CUBA, [facility] Primary [facility] Physician Primary Care Physician: EDDIE ANTUNEZ APRN,[facility] Summary of History and Physical Summary of History and Physical: 74 yo male presented to the ER with complaints of cat bite to R hand/arm. Patient has pmh of end-stage dementia and unable to provide HPI. reports that cat bite occurred on Saturday05/06/24 and affected extremity became swollen and red following. Presented to ER yesterday. Denies any fever that she is aware of, no other symptoms. Tetanus was not up to date and was updated in ER. Cat is a family pet however vaccines not up to date. Reports no signs of rabies. ER work-up unremarkable. Started on unasyn and admited to med/surg observation for cellulitis. Hospital Course Subjective: During stay, patient's cellulitis was treated with unasyn Q6H initially. On day 2, swelling and redness worsened. He was then started on vancomycin. Following the vancomycin, cellulitis improved. Patient has dementia and nursing staff had difficulty keeping extremity elevated. Discussed need with family that elevation and ice was necessary. D/c home with doxycycline BID x 7 days. Due to anxiousness/agitation, patient was started on ativan 1 mg tid prn. No changes to home medications. Appearance: Pleasant, No Apparent Distress and Alert HEENT: MMM and Supple CVS: No Murmur Abdomen: Soft, Non-Tender and No Distention Respiratory: No Dyspnea Extremities: Other (+1 pitting edema to RUE, mild erythema, scattered healing abrasions) Vital Signs: Most Recent Vital Signs Temperature 97.9 F 05/10/24 05:07 Temperature Source Temporal Artery Scan 05/10/24 05:07 Temperature Source Oral 05/07/24 18:52 Pulse Rate 68 05/10/24 07:53 Respiratory Rate 17 05/10/24 05:07 Blood Pressure 141/72 H 05/10/24 05:07 Blood Pressure Mean 95 05/10/24 05:07 Blood Pressure Right Arm 128/65 05/07/24 21:37 Blood Pressure Location Left Arm 05/10/24 05:07 Blood Pressure Position Supine 05/10/24 05:07 O2 Sat by Pulse Oximetry 97 05/10/24 05:07 Oxygen Delivery Method Room Air 05/10/24 07:53 Height 6 ft 5 in 05/07/24 21:37 Weight 235 lb 9 oz 05/07/24 21:37 Imaging: EXAM: CT OF THE RIGHT HAND WITH CONTRAST FINDINGS: Soft tissue swelling is present over the forearm which is more pronounced near the wrist with some skin thickening. More pronounced soft tissue swelling over the dorsal aspect of the hand as well as soft tissue swelling of the index, middle and ring fingers. Subcortical degenerative cyst like changes are present within the wrist. Osteoarthritis is present within the hand and wrist. No significant stenosis or evidence of vascular occlusion. No drainable abscess evident. There is a linear calcification/enthesophyte of the extensor carpi ulnaris. IMPRESSION: 1. Multilevel focal osteoarthritis 2. Diffuse soft tissue swelling as noted which may reflect cellulitis. No drainable abscess evident. 3. Diffuse calcification of the distal extensor carpi ulnaris. Lab Results Last 24 Hours: 05/10/24 05:19 WBC 8.62 RBC 4.19 L Hgb 12.4 L Hct 39.1 L MCV 93.3 MCH 29.6 MCHC 31.7 L RDW Coeff of Belkys 13.9 Plt Count 126 L Immature Gran % (Auto) 0.2 Neut % (Auto) 79.0 H Lymph % (Auto) 12.4 [place] % (Auto) 5.9 Eos % (Auto) 2.2 Baso % (Auto) 0.3 Neut # (Auto) 6.8 Lymph # (Auto) 1.1 [place] # (Auto) 0.5 Eos # (Auto) 0.2 Baso # (Auto) 0.0 Immature Gran # (Auto) 0.0 Sodium 139.5 Potassium 3.85 Chloride 108.9 H Carbon Dioxide 26.0 Anion Gap 8.45 BUN 11.0 Creatinine 0.74 Estimated GFR (MDRD) 104.00 BUN/Creatinine Ratio 14.86 Glucose 91.1 Calcium 8.79 Total Bilirubin 0.78 AST 28.8 ALT 22.8 Alkaline Phosphatase 77.4 Total Protein 6.38 Albumin 3.75 Globulin 2.63 Albumin/Globulin Ratio 1.42 Discharge Instructions Discharge Planning: Discharge Planning > 40 minutes If patient is discharged with left ventricular systolic dysfunction: NA Discharged with a beta nithin? [] If no, why not? [] Discharged with an zaira/arb? [] If no, why not? [] Diagnosis: Cellulitis Diet: Regular Activity: as tolerated Follow-up with PCP next week. Medications: Doxycycline twice a day x 7 days, ativan up to 3 times a day as needed for anxiousness Continue to ice and elevate the hand/arm as much as possible. Appointment has been made at [facility] for SaturdayMay 19 @ 9:15 AM. If any needs or concerns prior to this appointment call the clinic @ [phone]. Discharge Medications: Medications at Discharge (Home Meds & RX) metoprolol tartrate 25 mg tablet 12.5 mg PO BID 10/11/21 apixaban 5 mg tablet (Eliquis) 5 mg PO BID 12/15/21 finasteride 5 mg tablet 5 mg PO QDAY 12/15/21 memantine 28 mg capsule sprinkle,extended release 24hr 28 mg PO QDAY #30 ea 11/27/22 rosuvastatin 10 mg tablet See Rx Instructions .Route .COMPLEX #90 tabs 03/03/24 allopurinol 100 mg tablet See Rx Instructions .Route .COMPLEX #120 tabs 03/19/24 tamsulosin 0.4 mg capsule See Rx Instructions .Route .COMPLEX #60 caps 03/24/24 trazodone 50 mg tablet 50 mg PO BEDTIME 05/07/24 Discharge Plan Discharge Discharge Orders: Discharge Patient (ONCE); Ordered 05/10/24 Ordered By: INLSON CARLOS Activity Restrictions/Additional Instructions: Diagnosis: Cellulitis Diet: Regular Activity: as tolerated Follow-up with PCP next week. Medications: Doxycycline twice a day x 7 days, ativan up to 3 times a day as needed for anxiousness Continue to ice and elevate the hand/arm as much as possible. Appointment has been made at [facility] for SaturdayMay 19 @ 9:15 AM. If any needs or concerns prior to this appointment call the clinic @ [phone]. Instructions: Cellulitis (GEN) Patient Disposition: HOME WITH FAMILY CARE Prescriptions: New lorazepam 1 mg Tablet 1 mg PO TID PRN (Reason: agitation) Qty: 90 0RF doxycycline monohydrate 100 mg capsule 100 mg PO BID Qty: 14 0RF Continued Eliquis 5 mg tablet 5 mg PO BID Patient Comments: FrancisAshley Sanket finasteride 5 mg tablet 5 mg PO QDAY Patient Comments: ArmidaAshleyJody rosuvastatin 10 mg tablet See Rx Instructions .ROUTE .COMPLEX Qty: 90 0RF Dose Instruction: TAKE ONE TABLET DAILY FOR CHOLESTEROL Rx Instructions: TAKE ONE TABLET DAILY FOR CHOLESTEROL allopurinol 100 mg tablet See Rx Instructions .ROUTE .COMPLEX Qty: 120 0RF Dose Instruction: TAKE TWO TABLETS TWICE DAILY Rx Instructions: TAKE TWO TABLETS TWICE DAILY tamsulosin 0.4 mg capsule See Rx Instructions .ROUTE .COMPLEX Qty: 60 0RF Dose Instruction: TAKE TWO CAPSULES EVERY NIGHT Rx Instructions: TAKE TWO CAPSULES EVERY NIGHT trazodone 50 mg tablet 50 mg PO BEDTIME metoprolol tartrate 25 mg tablet 12.5 mg PO BID Patient Comments: bottle dated 09/08/21 shows 25 mg tablets. take 1/2 tablet twice daily Rx Instructions: Followed by Cardiology memantine 28 mg capsule,sprinkle,ER 24hr 28 mg PO QDAY Qty: 30 0RF Rx Instructions: dr montoya neurology Did you review [place] PROCURE[place] for ALL controlled substances?: No Discussed opioids are addictive and Narcan is available by prescription or from pharmacy.: No Condition: Stable Referrals: EDDIE ANTUNEZ APRN,FNPBC [Primary Care Provider] - 05/19/24 9:15 am (Appointment has been made at [facility] for SaturdayMay 19 @ 9:15 AM. If any needs or concerns prior to this appointment call the clinic @ [phone].)
== END 2024-05-10 10:20 | disposition home or self-care (01) ==
LOC: MEDSURG B 18:49 → ED 18:49 → MEDSURG B 21:50
PROVIDERS: ADMIT Hospitalist; ATTEND Nurse Practitioner Family
DX: Z79.899 Other long term (current) drug therapy; I10 Essential (primary) hypertension; M19.021 Primary osteoarthritis, right elbow; Z20.822 Contact with and (suspected) exposure to COVID-19; Z79.01 Long term (current) use of anticoagulants; M19.031 Primary osteoarthritis, right wrist; S51.851A Open bite of right forearm, initial encounter; I48.91 Unspecified atrial fibrillation; Z51.81 Encounter for therapeutic drug level monitoring; L03.113 Cellulitis of right upper limb; E78.5 Hyperlipidemia, unspecified; M19.041 Primary osteoarthritis, right hand; F03.90 Unspecified dementia, unspecified severity, without behavioral disturbance, psychotic disturbance, mood disturbance, and anxiety; N40.0 Benign prostatic hyperplasia without lower urinary tract symptoms; W55.01XA Bitten by cat, initial encounter